=== PATIENT | female | born 1965 | race Caucasian/White ===

== ENCOUNTER → 2016-11-25 | Outpatient (CLI) | payer OTHER, BC ==
--- NOTE | 2016-11-25 19:38 | DX ---
Left Middle Finger 3 Views History: Jammed finger yesterday, pain. Comparison: None available. Findings: There is a mildly displaced avulsion fracture of the dorsal aspect of the base of the dista l phalanx with intraarticular extension. There is minimal flexion of the distal interphalangeal joint . Bone mineralization is normal. 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 Impression: Mildly displaced avulsion fracture dorsal base of the distal phalanx..
== END ==
LOC: CIMAGING 13:58
PROVIDERS: ATTEND Physical Medicine & Rehabilitation
DX: S62.633A Displaced fracture of distal phalanx of left middle finger, initial encounter for closed fracture (principal)
CPT/HCPCS: 73140-PO

== ENCOUNTER 2019-01-11 09:03 | Emergency (ER) | payer BC, OTHER ==
--- NOTE | 2019-01-11 09:43 | EDPHY ---
H & P Time Seen by Provider: 01/11/19 09:13 HPI/ROS: This patient complains of bloody noses over the past few days starting on Tuesday , 3 days prior to arrival with nose bleeds lasting 20 min or more from the right naris a when she wakes up in the morning. Today the nose bleed continues for more than our despite applying pressure to the area. She reports mild to moderate bleeding from the right naris. She attributes this to dry mucous membranes. She had been using a humidifier until Tuesday when the nosebleed started in despite the mid fire said continued recurrent nose bleeds. She denies any other associated symptoms except for some fatigue. ROS: Constitutional: Fatigue as per HPI. Otherwise no complaints HEENT: No recent nasal trauma Neuro: No complaints cardiovascular: No lightheadedness Integumentary: No pallor diaphoresis. No rash. 7 point review of symptoms is performed and otherwise negative with exception of pertinent positives and negatives listed in HPI and ROS Smoking Status: Never smoked Physical Exam: Physical Exam Vital signs are normal. General: No acute distress HEENT: Nose: Mild bleeding from right ear is present. No sinus tenderness to percussion. Ears: External canals and tympanic membranes are clear with no erythema or abnormal findings bilaterally. Oropharynx: No erythema or exudates. No dysphonia. No posterior pharyngeal blood. No drooling or stridor. Eyes: Pupils equal and react to light. Extraocular motions are intact. Neck: Supple with no meningismus. No lymphadenopathy Lungs: Clear to auscultation bilaterally with no rales, rhonchi or wheeze. No respiratory distress. Cardiac: Regular rate and rhythm with no murmur gallop or rub Skin: No rash or pallor. Neuro: Alert with no focal deficits noted. Constitutional: Initial Vital Signs Temperature (C) 37.2 C 01/11/19 09:13 Heart Rate 104 H 01/11/19 09:13 Respiratory Rate 18 01/11/19 09:13 Blood Pressure 171/99 H 01/11/19 09:13 O2 Sat (%) 93 01/11/19 09:13 O2 Delivery Mode Room Air Allergies/Adverse Reactions: Sulfa (Sulfonamide Antibiotics) Allergy (Verified 01/11/19 09:13) Home Medications: Medication Instructions Recorded Thyroid 01/11/19 MDM/Departure - MDM Procedures: Procedure: Epistaxis control. After verbal consent was obtained, the patient was anesthetized with [a 50-50 mix of 4% lidocaine with 1-1000 concentration epinephrine. I sprayed this the patient's nares using 10 mL transient 20-gauge Angiocath 2 mL in each nares. This was followed by soaking cotton ball on the same medication and placed in the right nares for 15 minutes. ]. The anterior epistaxis was identified. The patient was treated with [ silver nitrate with hemostasis]. Following the procedure the patient was re-examined and the bleeding was well controlled. The patient tolerated the procedure well. The procedure was performed by myself. ED Course/Re-evaluation: Discussion: Anterior epistaxis resolved after chemical cautery. No clinical evidence of significant anemia or other concerning findings. Counseled patient regarding anterior epistaxis. I suspect dry mucous membranes from no humidifier as the contributing cause of this episode. She will follow up with ENT for any intermittent ongoing symptoms but understands need to return emergency department should she have significant bleeding last beyond 20 min despite appropriate measures at - Depart Disposition: Home, Routine, Self-Care Clinical Impression: Anterior epistaxis Condition: Good Instructions: Nosebleed (ED) Additional Instructions: Diagnosis: Anterior epistaxis Plan: Continue humidifier Try not to blow your nose for the next 5 days. Do not pick at the nose. Use Afrin nasal spray if developed recurrent bleed and pinch the top of your nose welling forward over a bowl until the bleeding stops. As long as the bleeding stops then 20 min, no need to return emergency department. For any nose bleed the persist beyond 20 min, return emergency department for repeat evaluation. Follow-up with Dr. Jade if he have frequent brief nosebleeds despite treatment plan. Referrals: Annabelle Kemp MD [Primary Care Provider] - As per Instructions Yara Jade MD [Medical Doctor] - As per Instructions
[2019-01-11 11:11] VITALS: BP 151/108
== END 2019-01-11 11:15 | disposition home or self-care (01) ==
LOC: CED 09:03
PROC: 3E09XGC Introduction of Other Therapeutic Substance into Nose, External Approach (ICD-10-PCS; principal; 2019-01-11)
DX: R04.0 Epistaxis (principal)
CPT/HCPCS: 99283-ER